=== PATIENT | male | born 2000 | race American Indian/Alaskan Native ===

== ENCOUNTER 2019-05-12 02:39 | Emergency (ER) | payer SELFPAY ==
--- NOTE | 2019-05-12 08:17 | Emergency Department Report ---
ED General Adult HPI - General Chief complaint: Neuro Symptoms/Deficit Stated complaint: FACIAL NUMBNESS/SWOLLEN MOUTH Time Seen by Provider: 05/12/19 07:14 Source: patient Mode of arrival: Ambulatory Limitations: No Limitations - History of Present Illness Initial comments: 18-year-old -[place] male patient without significant past medical hist ory complains of sore throat 1 week, pulse for a hematuria 1 week, and right lip sore with swelling and facial droop today. He denies any fever, cough, SOB, penile discharge, penile/testicular lesions or swelling. He admits to mild dysuria. Patient states a lesion appeared on his right lip last night which then resulted in swelling. He states around 1 or 2 AM he awoke from his sleep and noticed that the left side of his lip was drooping. He states the drooping resolved after one hour. He denies any current facial numbness/tingling/weakness/headache/vision changes, numbness/tingling in his extremities, trouble with speech, or confusion. He denied any other parts of his face drooping at that time or history of CVA or blood clotting disorders. Patient also denies any history of oral herpes. -: Sudden Severity scale (0 -10): 7 Quality: aching Consistency: constant Treatments Prior to Arrival: none - Related Data Previous Rx's Medication Instructions Recorded Last Taken Type Ibuprofen [Motrin 800 MG tab] 800 mg PO Q8HR PRN #21 tablet 05/12/19 Unknown Rx Valacyclovir HCl [Valtrex] 1,000 mg PO TID #21 tablet 05/12/19 Unknown Rx predniSONE [Deltasone] 10 mg PO QDAY 10 Days #45 tablet 05/12/19 Unknown Rx Allergies Allergy/AdvReac Type Severity Reaction Status Date / Time amoxicillin [From Augmentin] Allergy Rash Verified 05/12/19 02:43 clavulanic acid Allergy Rash Verified 05/12/19 02:43 [From Augmentin] ED Review of Systems ROS: Stated complaint: FACIAL NUMBNESS/SWOLLEN MOUTH Other details as noted in HPI Constitutional: denies: chills, fever Eyes: denies: eye pain, vision change ENT: throat pain Respiratory: denies: cough, shortness of breath Cardiovascular: denies: chest pain Endocrine: no symptoms reported Gastrointestinal: denies: abdominal pain, nausea, vomiting Genitourinary: dysuria, hematuria. denies: urgency, frequency, discharge, testicular pain, testicular mass Musculoskeletal: denies: back pain, joint swelling, arthralgia, myalgia Skin: lesions. denies: rash Neurological: denies: headache, weakness, numbness, paresthesias, confusion, abnormal gait, vertigo Psychiatric: denies: anxiety, depression Hematological/Lymphatic: denies: easy bleeding, easy bruising ED Past Medical Hx - Past Medical History Previous Medical History?: No - Surgical History Past Surgical History?: No - Social History Smoking Status: Heavy Tobacco Smoker Substance Use Type: Marijuana - Medications Home Medications: Home Medications Medication Instructions Recorded Confirmed Last Taken Type Ibuprofen [Motrin 800 MG tab] 800 mg PO Q8HR PRN #21 tablet 05/12/19 Unknown Rx Valacyclovir HCl [Valtrex] 1,000 mg PO TID #21 tablet 05/12/19 Unknown Rx predniSONE [Deltasone] 10 mg PO QDAY 10 Days #45 tablet 05/12/19 Unknown Rx ED Physical Exam - General Limitations: No Limitations General appearance: alert, in no apparent distress - Head Head exam: Present: atraumatic, normocephalic - Eye Eye exam: Present: normal appearance, PERRL, EOMI. Absent: scleral icterus - ENT ENT exam: Present: mucous membranes moist - Expanded ENT Exam Expanded Mouth exam: Present: other (small herpetic lesion noted on lower lip. No swelling noted. No facial droop noted.). Absent: drooling, trismus, muffled voice Throat exam: Positive: tonsillar erythema. Negative: tonsillomegaly, tonsillar exudate, R peritonsillar mass, L peritonsillar mass - Respiratory Respiratory exam: Present: normal lung sounds bilaterally. Absent: respiratory distress - Cardiovascular Cardiovascular Exam: Present: regular rate, normal rhythm. Absent: systolic murmur, diastolic murmur, rubs, gallop - Rectal Rectal exam: Present: deferred - Extremities Exam Extremities exam: Present: normal inspection, full ROM - Back Exam Back exam: Present: full ROM. Absent: paraspinal tenderness, vertebral tenderness - Neurological Exam Neurological exam: Present: alert, oriented X3, CN II-XII intact, normal gait, reflexes normal. Absent: motor sensory deficit - Expanded Neurological Exam Expanded Cranial nerves: EOM's Intact: Normal, Gag Reflex: Normal, Tongue Deviation: Normal, Facial Sensation: Normal, Facial Palsy with Forehead Movement: Normal (absent), Facial Palsy without Forehead Movement: Normal (absent) Cerebellar function: Finger to Nose: Normal, Heel to [place]: Normal, Romberg: Normal Sensory exam: Upper Extremity Light Touch: Normal, Lower Extremity Light Touch: Normal Motor strength exam: RUE: 5, LUE: 5, RLE: 5, LLE: 5 - Psychiatric Psychiatric exam: Present: normal affect, normal mood - Skin Skin exam: Present: warm, dry, intact, normal color. Absent: rash ED Course Vital Signs 05/12/19 05/12/19 02:47 10:25 Temperature 98.5 F 98.3 F Pulse Rate 80 60 Respiratory 20 16 Rate Blood Pressure 141/81 Blood Pressure 114/66 [Left] O2 Sat by Pulse 99 100 Oximetry ED Medical Decision Making - Lab Data Lab Results 05/12/19 05/12/19 Range/Units 09:50 09:50 Urine Color Yellow (Yellow) Urine Turbidity Clear (Clear) Urine pH 5.0 (5.0-7.0) Ur Specific [place] 1.026 (1.003-1.030) Urine Protein <15 mg/dl (Negative) mg/dL Urine Glucose (UA) Neg (Negative) mg/dL Urine Ketones Neg (Negative) mg/dL Urine Blood Sm (Negative) Urine Nitrite Neg (Negative) Urine Bilirubin Neg (Negative) Urine Urobilinogen < 2.0 (<2.0) mg/dL Ur Leukocyte Esterase Sm (Negative) Urine WBC (Auto) 50.0 H (0.0-6.0) /HPF Urine RBC (Auto) 5.0 (0.0-6.0) /HPF Urine Mucus 2+ /HPF Group A Strep Rapid Negative (Negative) - Medical Decision Making 18-year-old -[place] male patient here with complaints of sore throat, and post void hematuria, and right lip swelling and lesion with left lip droop. Vitals are WNL. UA shows small amount of red blood cells but significant amount of white blood cells. Strep is negative. Herpetic lesion noted on lower right lip. No significant swelling noted of lips. Patient states facial droop resolved after one hour. No cranial nerve abnormalities noted on exam. Neuro exam was normal. Patient denies any red flag symptoms. Patient treated empirically for gonorrhea and chlamydia. Urine culture is processing. Given new onset of oral herpes, patient likely has beginning presentation of Yo's palsy. We'll treat empirically for this with prednisone and valacyclovir. Recommend follow-up with neurology and primary care. Discussed very strict return precautions in great detail with patient who states understanding. Critical care attestation.: If time is entered above; I have spent that time in minutes in the direct care of this critically ill patient, excluding procedure time. ED Disposition Clinical Impression: Dysuria, Oral herpes, Yo's palsy Pharyngitis Qualifiers: Pharyngitis/tonsillitis etiology: other specified organisms Qualified Code(s): J02.8 - Acute pharyngitis due to other specified organisms Disposition: - TO HOME OR SELFCARE Is pt being admited?: No Condition: Stable Instructions: Sexually Transmitted Diseases (ED), Pharyngitis (ED), Yo Palsy (ED), Oral Herpes Simplex Virus Infections (ED) Prescriptions: predniSONE [Deltasone] 10 mg PO QDAY 10 Days #45 tablet Ibuprofen [Motrin 800 MG tab] 800 mg PO Q8HR PRN #21 tablet PRN Reason: Pain, Moderate (4-6) Valacyclovir HCl [Valtrex] 1,000 mg PO TID #21 tablet Referrals: PRIMARY CAREMD [Primary Care Provider] - 2-3 Days VALERI INMAN MD [Staff Physician] - 2-3 Days
[2019-05-12 10:26] VITALS: BP 114/66
[2019-05-12 10:38] LABS: Bilirubin,Urine NEG (Negative); Blood,Urine SM (Negative); Color,Urine Yellow (Yellow); Mucus,Urine 2+ /HPF; Protein,Urine <15 mg/dL mg/dL (Negative); Urobilinogen,Urine < 2.0 mg/dL (<2.0)
[2019-05-12] MEDS ORDERED: LIDOCAINE-MPF (1%) 10 MG/1 ML VIAL 5 ML INFILTRATI ONE (10:47)
[2019-05-12] MEDS ORDERED: AZITHROMYCIN 250 MG TAB PO ONE (10:47)
== END 2019-05-12 11:44 | disposition home or self-care (01) ==
LOC: ED 02:39
DX: G51.0 Bell's palsy (principal); B00.89 Other herpesviral infection; J02.9 Acute pharyngitis, unspecified; R30.0 Dysuria
CPT/HCPCS: 81001; 87086; 87116; 87430; 96372; 99283; J0696